=== PATIENT | male | born 1980 | race African-American/Black ===

== ENCOUNTER 2023-11-12 13:07 | Emergency (ER) | payer MEDICAID, OTHER ==
[~2023-11-12] VITALS: Ht 172.7 cm; Wt 84.0 kg
[2023-11-12 13:16] VITALS: O2SAT 99
[2023-11-12] MEDS ORDERED: LIDO700A15 TP (15:06)
[2023-11-12] MEDS ORDERED: IBUP-2029 MT (15:06)
[2023-11-12 15:21] VITALS: BP 138/87; PULSE 89; RESP 16; TEMP 98.3
== END 2023-11-12 15:21 | disposition home or self-care (01) ==
LOC: ER 13:07
DX: S76.912A Strain of unspecified muscles, fascia and tendons at thigh level, left thigh, initial encounter (principal); M79.652 Pain in left thigh; X58.XXXA Exposure to other specified factors, initial encounter; Y93.89 Activity, other specified; Y92.89 Other specified places as the place of occurrence of the external cause; Y99.8 Other external cause status
CPT/HCPCS: 99283

== ENCOUNTER 2023-12-04 02:09 | Emergency (ER) | payer MEDICAID, OTHER ==
[~2023-12-04] VITALS: Ht 172.7 cm; Wt 84.0 kg
[~2023-12-04 02:09] MED LIST: IBUP-2029 MT; LIDO700A15 TP
[2023-12-04 02:19] VITALS: O2SAT 99
[2023-12-04] MEDS: ACETAMINOPHEN 325MG TABLET PO ONE (03:15)
[2023-12-04] MEDS: IBUPROFEN 800MG TABLET PO ONE (03:45)
[2023-12-04] MEDS ORDERED: AMOX-494 MT (03:53)
[2023-12-04] MEDS ORDERED: IBUP-2030 MT (03:53)
[2023-12-04 04:43] VITALS: BP 134/77; PULSE 113; RESP 16; TEMP 98.8
== END 2023-12-04 04:18 | disposition home or self-care (01) ==
LOC: ER 02:09
DX: J02.8 Acute pharyngitis due to other specified organisms (principal); F12.90 Cannabis use, unspecified, uncomplicated; Z88.8 Allergy status to other drugs, medicaments and biological substances
CPT/HCPCS: 99283; Z7610

== ENCOUNTER 2024-06-07 10:21 | Emergency (ER) | payer OTHER ==
[~2024-06-07] VITALS: Ht 172.7 cm; Wt 82.0 kg
[~2024-06-07 10:21] MED LIST changes: +AMOX-494 MT; +IBUP-2030 MT
[2024-06-07 10:34] VITALS: O2SAT 98
[2024-06-07] MEDS ORDERED: DEXA0.5E3 MT (11:37)
[2024-06-07] MEDS ORDERED: IBUP-2029 MT (11:37)
[2024-06-07] MEDS ORDERED: IBUPROFEN 600MG TABLET PO ONE (11:45)
[2024-06-07 12:44] VITALS: BP 133/94; PULSE 98; RESP 15; TEMP 37.1; O2SAT 99
== END 2024-06-07 12:49 | disposition home or self-care (01) ==
LOC: ER 10:21
DX: K12.0 Recurrent oral aphthae (principal); F12.90 Cannabis use, unspecified, uncomplicated
CPT/HCPCS: 99283

== ENCOUNTER 2024-06-10 11:46 | Emergency (ER) | payer OTHER ==
[~2024-06-10] VITALS: Ht 172.7 cm; Wt 86.0 kg
[~2024-06-10 11:46] MED LIST changes: +DEXA0.5E3 MT
[2024-06-10 12:07] VITALS: O2SAT 100
[2024-06-10] MEDS ORDERED: ERYT1OIN6 RIGHTEYE (13:14)
[2024-06-10 13:27] VITALS: BP 130/85; PULSE 90; RESP 16; TEMP 36.8; O2SAT 100
== END 2024-06-10 13:25 | disposition home or self-care (01) ==
LOC: ER 11:46
DX: H10.89 Other conjunctivitis (principal); F12.90 Cannabis use, unspecified, uncomplicated
CPT/HCPCS: 99283

== ENCOUNTER 2024-06-14 13:41 | Emergency (ER) | payer OTHER ==
[~2024-06-14] VITALS: Ht 172.7 cm; Wt 86.0 kg
[~2024-06-14 13:41] MED LIST changes: +ERYT1OIN6 RIGHTEYE
[2024-06-14 14:00] VITALS: O2SAT 99
[2024-06-14] MEDS: KETOROLAC 15MG/ML VIAL IV ONE (15:54)
[2024-06-14] MEDS: AMPICILLIN SOD/SULBACTAM NA 3 G in SODIUM CHLORIDE 0.9% 100 ML IV STA (15:54)
[2024-06-14 16:00] LABS: BASOPHILS % 1.1 % (0.0-2.0); EOSINOPHILS % 3.9 % (0.0-5.0); HEMATOCRIT. 39.1 % (42.0-52.0); HEMOGLOBIN. 12.9 g/dL (14.0-18.0); LYMPHOCYTES % 22.6 % (20.0-50.0); MEAN CORPUSCULAR HEMOGLOBIN 28.9 pg (28.0-32.0); MEAN CORPUSCULAR HGB CONC 33.1 g/dL (31.0-37.0); MEAN CORPUSCULAR VOLUME 87.5 fL (80.0-94.0); MONOCYTES % 9.2 % (2.0-8.0); NEUTROPHILS % 63.2 % (40.0-76.0); PLATELET 346 x1000/uL (130-400); RED BLOOD CELL COUNT 4.47 mill/uL (4.7-6.1); RED CELL DISTRIBUTION WIDTH 15.5 % (11.6-14.6); WHITE BLOOD COUNT 9.5 x1000/uL (4.5-11.0)
[2024-06-14 16:02] LABS: CHLORIDE 104 mEq/L (98-107); POTASSIUM 3.9 mEq/L (3.5-5.1); SODIUM 140 mEq/L (136-145)
[2024-06-14 16:03] LABS: CARBON DIOXIDE 27 mEq/L (21-32)
[2024-06-14 16:08] LABS: CREATININE 0.9 mg/dL (0.6-1.3); GLUCOSE 126 mg/dL (70-105); UREA NITROGEN BLOOD 8 mg/dL (9-23)
[2024-06-14] MEDS ORDERED: IBUP-2029 MT (17:00)
[2024-06-14] MEDS ORDERED: AMOX1TAB16 MT (17:00)
[2024-06-14 17:15] VITALS: BP 142/90; PULSE 85; RESP 16; TEMP 37.1; O2SAT 99
[2024-06-14] MEDS ORDERED: IOHEXOL-300 100 ML BOTTLE ONE (23:19)
== END 2024-06-14 17:19 | disposition home or self-care (01) ==
LOC: ER 13:41
DX: J32.0 Chronic maxillary sinusitis (principal); F12.90 Cannabis use, unspecified, uncomplicated
CPT/HCPCS: 80048; 85025; 87040; 36415; 70450; 70487; 96365; 96375; 99285; Q9967; J0295; J1885; J7050; Z7610